=== PATIENT | male | born 2000 | race Two or more races ===

== ENCOUNTER 2023-06-01 18:27 | Emergency (ER) | payer OTHER ==
[~2023-06-01] VITALS: Ht 170.2 cm; Wt 59.0 kg
[2023-06-01] MEDS ORDERED: ZOFRAN8 MG PO (21:23)
[2023-06-01] MEDS ORDERED: PEPCID AC20 MG PO (21:23)
[2023-06-01] MEDS ORDERED: CARAFATE1 GM PO (21:23)
== END 2023-06-01 21:39 | disposition home or self-care (01) ==
LOC: ER 18:27
PROVIDERS: General Practice
DX: K29.70 Gastritis, unspecified, without bleeding (principal); R10.33 Periumbilical pain; Z88.2 Allergy status to sulfonamides

== ENCOUNTER 2023-08-16 03:00 | Emergency (ER) | payer OTHER ==
[~2023-08-16] VITALS: Ht 175.3 cm; Wt 59.0 kg
[~2023-08-16 03:00] MED LIST: CARAFATE1 GM PO; PEPCID AC20 MG PO; ZOFRAN8 MG PO
[2023-08-16] MEDS ORDERED: ORASEP SPRAY30 ML MM (05:14)
[2023-08-16] MEDS ORDERED: DUI500 PO (05:14)
== END 2023-08-16 05:47 ==
LOC: ER 03:00
DX: J03.80 Acute tonsillitis due to other specified organisms (principal); Z88.2 Allergy status to sulfonamides

== ENCOUNTER 2024-08-23 13:26 | Emergency (ER) | payer OTHER ==
[~2024-08-23] VITALS: Ht 175.3 cm; Wt 59.0 kg
[~2024-08-23 13:26] MED LIST changes: +DUI500 PO; +ORASEP SPRAY30 ML MM
[2024-08-23] MEDS ORDERED: MEDROLPACK PO (14:06)
[2024-08-23] MEDS ORDERED: ZITHROMAX500 MG PO (14:06)
[2024-08-23] MEDS ORDERED: PEPCID AC20 MG PO (14:06)
[2024-08-23] MEDS ORDERED: METHYLPREDNISOLONE SOD SUCC 40 MG VIAL IM ONE (14:15)
[2024-08-23] MEDS ORDERED: CEFTRIAXONE SODIUM 1,000 MG VIAL IM ONE (14:15)
== END 2024-08-23 14:44 | disposition home or self-care (01) ==
LOC: ER 13:28
DX: J02.0 Streptococcal pharyngitis (principal); Z88.2 Allergy status to sulfonamides